=== PATIENT | male | born 1985 | race Caucasian/White ===

== ENCOUNTER 2024-02-11 05:56 | Day surgery (SDC) | payer OTHER, SELFPAY ==
[2024-02-11] VITALS (8 sets, daily range): BP systolic 112–158; BP diastolic 60–92; BMI 34.7
[2024-02-11] MEDS: NORMOSOL-R 1000 IV (06:35)
== END 2024-02-11 09:50 | disposition home or self-care (01) ==
LOC: SDS 05:56
PROVIDERS: ATTENDING PHYSICIAN Specialist; PRIMARYCARE PHYSICIAN Family Medicine
DX: Z30.2 Encounter for sterilization (principal)
CPT/HCPCS: 55250; 88302